=== PATIENT | female | born 1985 ===

== ENCOUNTER → 2018-10-08 | Day surgery (SDC) | payer OTHER ==
[~2018-10-08] MED LIST: ACETAMINOPHEN 500 MG TAB ONE; ACETAMINOPHEN 500 MG TAB PO ONE; ACETAMINOPHEN 500 MG TAB PO PRN; ALBUTEROL 3 ML DEYVIAL IH PRN; BUPIVACAINE/EPI 0.5% 30 ML SDV ONE; DEXAMETHASONE 4 MG/ML VIAL ONE; DIAZEPAM 5 MG/ML 1 ML SYR IVP PRN; GABAPENTIN 300 MG CAP PO ONE; HYDROCODONE/APAP 5/325 TAB PO PRN; HYDROmorphONE/DILAUDID 2 MG/ML INJ IVP PRN; KETOROLAC 30 MG/1 ML SDV ONE; LIDOCAINE 2% 5 ML SDV ONE; LR 1,000 ML IV ONE; LR 500 ML IV PRN; METOCLOPRAMIDE 10 MG/2 ML VIAL IVP PRN; MIDAZOLAM 2 MG/2 ML VIAL IVP ONE; NALOXONE HCL 0.4 MG/ML INJ IVP PRN; ONDANSETRON 4 MG/2 ML VIAL IVP ONE; ONDANSETRON 4 MG/2 ML VIAL IVP PRN; ONDANSETRON 4 MG/2 ML VIAL ONE; PATCH REMOVAL 1 EA PATCH TD SCH; PHENAZOPYRIDINE HCL 200 MG TAB PO ONE; PROMETHAZINE HCL 25 MG/ML INJ IVP PRN; PROPOFOL 200 MG/20 ML VIAL ONE; ROCURONIUM 100 MG/10 ML VIAL ONE; SCOPOLAMINE HYDROBROMIDE 1 MG/3 DAYS PATCH TD ONE; SCOPOLAMINE HYDROBROMIDE 1 MG/3 DAYS PATCH TD SCH; SUGAMMADEX SODIUM 200 MG/2 ML VIAL IVP ONE; ceFAZolin 2 GM/DEXTROSE 100 ML IV ONE; fentaNYL 100 MCG/2 ML INJ ONE; fentaNYL 250 MCG/5 ML INJ ONE; oxyCODONE IR 5 MG TAB ONE; oxyCODONE IR 5 MG TAB PO PRN
--- NOTE | 2018-10-08 07:17 | PDGENHP ---
History and Physical History and Physical: Assessment and Plan: 1. Endometriosis of pelvic peritoneum Chen has recurrent endometriomas and most likely recurrent and/or inadequately treated endometriosis. She is not significantly concerned about pain right now, as her pain is fairly minimal, though has been increasing recently. We discussed all conservative and surgical options for endometriosis. For now, she could consider serial ultrasounds and close monitoring in order to preserve the left ovary. She could also try acupuncture, anti-inflammatory diet like autoimmune paleo, anti-inflammatory supplements and exercise to inhibit the growth of disease. Pelvic floor PT may not be entirely helpful since she is not sexually active and not experiencing dyspareunia. We discussed the option of oral contraception, but it may not slow or halt the progression of her endometriomas. We discussed the option of lupron, which patient does not desire , and will likely not resolve the endometriomas. Lastly, we discussed the possibility of excision surgery with Dr. Kerr. I have recommended that she obtain the images from her last two ultrasounds to send to Dr. Kerr for review. I will discuss with him and after review of the ultrasounds, see if he has any other suggestions. Discussed that I will be in touch with her later this week and/or after receiving the ultrasound images. 2. Endometrioma of ovary Subjective: Patient ID: Chen is a 33 y.o. female who presents to [facility] for endometriosis consult. HPI Chen Oppelt presents for a preoperative visit. She is scheduled for a robotic excision of endometriosis and 3 large endometriomas. The risks, benefits, and alternatives were presented and informed consent was obtained. 40 minutes of this 40 minute appointment was spent counceling, reviewing the procedure in detail, and discussing the preoperative and postoperative instructions. Below is a copy of our prior visit note. Chen is a 33 year old para 0 here to discuss endometriosis and recurrent endometriomas. Chen reports that her menses started at age 12 and are regular, mildly painful and not overly heavy. She bleeds for about 7 days including spotting. Days 1-2 are the heavist and she wears pads and changes them every few hours. In her 20's, she was placed on PRUDENCE for a brief period of time, but felt no different and then stopped them. In 2014, she began feeling pelvic pressure and discomfort, and having nocturia. She saw her gyn physician who did an ultrasound and found a 16 cm cyst on the ovary. Suspecting malignancy, she was referred to a gynoncologist who did a cystectomy and removed the right ovary and tube. She had another lap in 2016 due to recurrent endometrioma, this time on the left ovary. She did have endo on the right side wall, left sidewall which was adherent to the left tube/ovary and colon as well as the cervix and uterus. The adhesions were dissected and there was concern for possible endo on the colon, for which a general surgeon was consulted who did not believe it to be endometriosis. Since then, she has had two ultrasounds, most recently in March. The first in showed another cyst on the left ovary. In March, she had 3 cysts on the ovary , all appearing to be endometriomas. The largest was about 5 cm per Chen. Since the surgery, she has felt some worsening pain on the left side, particularly with menses and ovulation, but the pain is overall not entirely bothersome. She rates it a 1/10 daily and 6/10 during menses and ovulation. She also has some new right sided discomfort. Thepain is dull and aching and sometimes shart with a full bladder or bowel movments, which is more recent. She is not sexually active. She would like to preserve her left ovary if possible for hormones and the possibility of future childbearing. 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 She is here to discuss options for the endometriosis, as she is not entirely sure she wants to pursue another surgery. CURRENT MEDICATIONS: Current Outpatient Medications Medication Sig ascorbate calcium (VITAMIN C PO) Take by mouth daily. calcium carb/magnesium ox,carb (PAULO-MAG PO) Take by mouth daily. ergocalciferol, vitamin D2, (VITAMIN D PO) Take by mouth daily. FLUoxetine (PROZAC) 40 mg capsule Take 40 mg by mouth daily. omega-3/dha/epa/fish oil (OMEGA-3 PO) VITAMIN B COMPLEX PO Take by mouth daily. progesterone (PROMETRIUM) 200 mg capsule INSERT 1 CAPSULE VAGINALLY NIGHTLY AT BEDTIME ON DAYS PEAK +3 THROUGH PEAK +12 EACH CYCLE No current facility-administered medications for this visit. ALLERGIES: Hydrocodone-acetaminophen and Opioids - morphine analogues I have reviewed, verified and agree with the past medical history as documented by the RN today. Review of Systems Constitutional: Negative. Respiratory: Negative. Cardiovascular: Negative. Gastrointestinal: Dyschezia with menses and ovulation Genitourinary: Positive for pelvic pain (mild). Musculoskeletal: Positive for back pain (with menses and ovulation). Skin: Negative. Neurological: Negative. Objective: Vital Signs: Visit Vitals BP 120/66 Pulse 68 Temp 37.2 C (98.9 F) (Tympanic) Ht 1.765 m (5' 9.5") Wt 99.5 kg (219 lb 6.4 oz) LMP 08/20/2018 SpO2 99% BMI 31.94 kg/m Physical Exam Constitutional: She is oriented to person, place, and time. She appears well- developed and well-nourished. Neck: Normal range of motion. Cardiovascular: Normal rate. Pulmonary/Chest: Effort normal. Abdominal: Soft. There is no tenderness. Musculoskeletal: Normal range of motion. Neurological: She is alert and oriented to person, place, and time. Skin: Skin is warm and dry. Psychiatric: She has a normal mood and affect. Her behavior is normal. Pelvic; Normal external genitalia. Non-gaping introitus. Tenderness bilateral uterosacral ligaments. Tenderness posterior cervix and uterus. No rectal tenderness. Fullness noted left adnexa, likely one of her endometriomas. Cervix without lesion or discharge. Procedures DATA: I have reviewed patient's outside medical records. Summary findings include endometrioma on left ovary. Reviewed operative note from February 2017. TIME/COUNSELING: I personally spent a total of 45 minutes. Of that 40 minutes was counseling/ coordination of patient's care. See my note above for details. Joaquin Kerr MD
--- NOTE | 2018-10-08 12:59 | PDHPUP ---
History & Physical Update H&P update statement: This history and physical update is based on an assessment of the patient which was completed after admission or registration (within 24 hours), but prior to the surgery/procedure. H&P update: H&P reviewed & patient examined, no change in patient's condition since H&P completed
--- NOTE | 2018-10-08 13:17 | PDANEPAE ---
ANE History of Present Illness endometriosis ANE Past Medical History - Cardiovascular History Hx Hypertension: No Hx Arrhythmias: No Hx Chest Pain: No Hx Coronary Artery / Peripheral Vascular Disease: No Hx CHF / Valvular Disease: No Hx Palpitations: No - Pulmonary History Hx COPD: No Hx Asthma/Reactive Airway Disease: No Hx Recent Upper Respiratory Infection: No Hx Oxygen in Use at Home: No Hx Sleep Apnea: No Sleep Apnea Screening Result - Last Documented: Negative - Neurologic History Hx Cerebrovascular Accident: No Hx Seizures: No Hx Dementia: No - Endocrine History Hx Diabetes: No - Renal History Hx Renal Disorders: No - Liver History Hx Hepatic Disorders: No - Neurological & Psychiatric Hx Hx Neurological and Psychiatric Disorders: Yes Neurological / Psychiatric History Comment: anxiety/depression - Cancer History Hx Cancer: No - Congenital Disorder History Hx Congenital Disorders: No - GI History Hx Gastrointestinal Disorders: No - Other Health History Other Health History: endometriosis - Chronic Pain History Chronic Pain: No - Surgical History Prior Surgeries: 2 laproscopic for same reason ANE Review of Systems Review of systems is: negative Review of Systems: - Exercise capacity METS (RN): 4 METS ANE Patient History - Allergies Allergies/Adverse Reactions: morphine Allergy (Verified 09/26/18 15:42) Vomiting - Home Medications Home medications: home medication list seen and reviewed Home Medications: FLUoxetine [Prozac 20 MG (*)] 40 mg PO DAILY 09/26/18 [Last Taken Unknown] Herbals/Supplements -Info Only 1 ea PO DAILY 09/26/18 [Last Taken Unknown] Vitamin B Complex [Vitamin B Complex (OTC)] 1 each PO DAILY 09/26/18 [Last Taken Unknown] - Anes Hx Anes Hx: no prior problems - Smoking Hx Smoking Status: Never smoked - Family Anes Hx Family Hx Anesthesia Complications: sister samme issues ANE Labs/Vital Signs - Vital Signs Height: 177.8 cm Weight: 95.254 kg ANE Physical Exam - Airway Neck exam: FROM Mallampati Score: Class 1 Mouth exam: normal dental/mouth exam - Pulmonary Pulmonary: no respiratory distress - Cardiovascular Cardiovascular: regular rate and rhythym - ASA Status ASA Status: II ANE Anesthesia Plan Anesthesia Plan: general endotracheal anesthesia
--- NOTE | 2018-10-08 13:18 | POSTANESTH ---
Post Anesthetic Evaluation Cardiovascular Status: Normal, Stable Respiratory Status: Normal, Stable Level of Consciousness/Mental Status: Can Participate in Eval, Mildly Sleepy, Arousable Pain Control: Adequate, Prn Tx Ordered Nausea/Vomiting Control: Adequate, Prn Tx Ordered Complications Possibly Related to Anesthesia: None Noted
--- NOTE | 2018-10-08 16:16 | POSTOPPROG ---
Post Op Note Date of Operation: 10/08/18 Surgeon: Joaquin Kerr Corsage Maker: Bren Villa Anesthesia: GET(General Endotracheal) Pre-op Diagnosis: Endometriosis, pelvic pain Post-op Diagnosis: Same Procedure: Robotic excision of endo, bilat ureterolysis and ovarian pexy Findings: Significant endo Inf/Abcess present in the surg proc area at time of surgery?: No EBL: Minimal Complications: None
[2018-10-08] MEDS: fentaNYL 100 MCG/2 ML INJ IVP PRN ×2 (16:33→16:49)
[2018-10-08 19:15] VITALS: BP 130/80
--- NOTE | 2018-10-09 05:28 | GOP ---
DATE OF OPERATION: 10/08/2018 SURGEON: Joaquin Kerr MD MUSIC LIBRARIAN: Bren Villa CFA, ANESTHESIA: General. PREOPERATIVE DIAGNOSIS: 1. Endometriosis. 2. Dysmenorrhea. 3. Cyclic pelvic pain. 4. Urinary frequency. POSTOPERATIVE DIAGNOSIS: 1. Endometriosis. 2. Dysmenorrhea. 3. Cyclic pelvic pain. 4. Urinary frequency. PROCEDURE PERFORMED: 1. Robotic excision of extensive endometriosis throughout the anterior posterior cul-de-sac, bilater al pelvic side solano, left ovary, and uterus. 2. Bilateral ureterolysis. 3. Excision of rectal lesion. 4. Excision of left ovarian endometrioma. 5. Partial left oophorectomy. 6. Myomectomy of 6 fibroids. 7. Left ovarian pexy. 8. Cystoscopy. FINDINGS: SPECIMENS: 1. Pelvic peritoneum with endometriosis. 2. Left ovarian cyst wall. 3. Rectal lesion. 1. Uterine fibroids. 4. ESTIMATED BLOOD LOSS: 50 mL. DESCRIPTION OF PROCEDURE: The patient was taken to the operating room where she was identified. Gen eral anesthesia was administered and found to be adequate. She was placed in the lithotomy position and prepared and draped in normal sterile fashion. A Rivas catheter was placed in her bladder. A Hu lka tenaculum was placed in the uterus for manipulation. A 1 cm infraumbilical incision was made with a scalpel. The Veress needle with CO2 gas flowing was a dvanced into the peritoneal cavity. The abdomen was then insufflated with carbon dioxide gas. The 1 2 mm trocar followed by the laparoscope were then inserted. The upper abdomen was unremarkable. She had no endometriosis on either diaphragm, liver, gallbladder, or upper abdominal bowel. Two lateral ports placed in the right, 1 on the left on direct visualization. She was then placed in Trendelenb urg position and the da Michell robot docked on the left side. The instruments were then brought into the abdominal cavity under direct visualization. She was found to have a large endometrioma arising from the left ovary. There was a smaller one on t he medial aspect. The ovary was adherent to the posterior uterus, the left pelvic sidewall, and the rectum. The right tube and ovary were surgically absent. She had multiple lesions of endometriosis on the anterior and posterior cul-de-sac, both pelvic sidewalls as well as the left adnexa and uterus . She had filmy endometriosis on the rectum. The endometrioma was opened and the cyst wall excised. There was some stroma, which was very thin an d did not appear to be viable. This was excised. Given the gaping aspect, the left ovary was reappr oximated with 3-0 Vicryl Rapide suture. A left ovarian pexy was then performed by attaching the left ovary to the left round ligament near the internal inguinal ring. The anterior cul-de-sac, peritone um, and endometriosis were completely excised. The posterior cul-de-sac, peritoneum, and endometrios is were then completely excised from the distal rectum up to the cervix and laterally to include both uterosacral ligaments. There was a lesion on the distal rectum which was excised and left attached to the peritoneum. This extended approximately 1/3 the depth of the muscularis. A bilateral uretero lysis was required given the endometriosis overlying both ureters. The peritoneum of the pelvic brim s was incised. The ureters were gently dissected free and lateralized off the overlying peritoneum a nd endometriosis from the pelvic brim down to the uterine arteries. Once this was accomplished, the entire pelvic sidewall, peritoneum, and endometriosis were completely excised. She had multiple uter ine fibroids, mostly 1 cm and under, which were excised. These were subserosal. Approximately 6 wer e removed and sent to pathology. The pelvis was then copiously irrigated with sterile saline, and he mostasis was present. Two sheets of Interceed were used to wrap the left tube and ovary. One sheet was used in the posterior cul-de-sac and right pelvic sidewall to minimize adhesion formation of the bowel. The robot was then undocked. The fascia was closed with 0 Vicryl, the skin with 4-0 Monocryl . Cystoscopy was then performed given her urinary frequency concerning for interstitial cystitis. N o Hunner's ulcers nor other pathology was seen. Both ureters had vigorous jets of urine. Anesthesia was then reversed and patient taken to PACU awake and in stable condition. COMPLICATIONS: None. DISPOSITION: Patient stable to PACU. /[id number]/MODL
== END | disposition home or self-care (01) ==
LOC: UNDOADMOB 12:01 → FSGY 12:01 → EDSTATUS 13:30 → UNDODISOB 19:41
PROVIDERS: ATTEND Obstetrics & Gynecology
PROC: 0TJ98ZZ Inspection of Ureter, Via Natural or Artificial Opening Endoscopic (ICD-10-PCS; principal; 2018-10-08 13:30)
PROC: 0DBW4ZX Excision of Peritoneum, Percutaneous Endoscopic Approach, Diagnostic (ICD-10-PCS; principal; 2018-10-08 13:30)
PROC: 0UBF4ZX Excision of Cul-de-sac, Percutaneous Endoscopic Approach, Diagnostic (ICD-10-PCS; principal; 2018-10-08 13:30)
PROC: 0DBP4ZX Excision of Rectum, Percutaneous Endoscopic Approach, Diagnostic (ICD-10-PCS; principal; 2018-10-08 13:30)
PROC: 0UB94ZX Excision of Uterus, Percutaneous Endoscopic Approach, Diagnostic (ICD-10-PCS; principal; 2018-10-08 13:30)
PROC: 0UB14ZX Excision of Left Ovary, Percutaneous Endoscopic Approach, Diagnostic (ICD-10-PCS; principal; 2018-10-08 13:30)
DX: N80.3 Endometriosis of pelvic peritoneum (principal); N80.1 Endometriosis of ovary; D25.9 Leiomyoma of uterus, unspecified; N94.6 Dysmenorrhea, unspecified; R35.0 Frequency of micturition
CPT/HCPCS: 58662; C1765; J0690; J1100; J1885; J2250; J2405; J2704; J3010